=== PATIENT | female | born 1965 | race Caucasian/White ===

== ENCOUNTER 2018-04-09 18:09 | Emergency (ER) | payer BC ==
[~2018-04-09] VITALS: Ht 160 cm; Wt 72.0 kg
[~2018-04-09 18:09] MED LIST: COLC0.6T66 PO; IBUP-1051 PO; IND25C PO; TIZA4TAB11 PO
[2018-04-09 18:35] VITALS: BP 121/70
[2018-04-09] MEDS ORDERED: HYDROcodone/acetaminophen 10/325mg tab PO ONE (21:35)
[2018-04-09] MEDS ORDERED: HYDR-565 PO (21:46)
== END 2018-04-09 22:03 | disposition home or self-care (01) ==
LOC: ER 18:10
DX: S92.512A Displaced fracture of proximal phalanx of left lesser toe(s), initial encounter for closed fracture (principal); Z90.49 Acquired absence of other specified parts of digestive tract; Z88.0 Allergy status to penicillin; Z88.5 Allergy status to narcotic agent; Z79.899 Other long term (current) drug therapy; W22.03XA Walked into furniture, initial encounter; Y93.89 Activity, other specified; Y92.89 Other specified places as the place of occurrence of the external cause; Y99.8 Other external cause status
CPT/HCPCS: 73660; 99284

== ENCOUNTER 2018-07-21 17:30 | Emergency (ER) | payer BC, OTHER ==
[~2018-07-21] VITALS: Ht 160 cm; Wt 75.0 kg
[2018-07-21] MEDS ORDERED: fentaNYL/PF 50MCG/1 ML 2ML syringe IV ONE ×2 (18:00→20:30)
--- NOTE | 2018-07-21 18:13 | NUR ---
PT OFF TO XRAY AND CT
[2018-07-21 18:21] LABS: BASOPHILS % (AUTO) 0.6 % (0-1); EOSINOPHILS # (AUTO) 0.1 X10'3 (0-0.9); EOSINOPHILS % (AUTO) 1.5 % (0-6); HEMATOCRIT 42.6 % (35.0-45.0); LYMPHOCYTES # (AUTO) 2.5 X10'3 (1.1-4.8); LYMPHOCYTES % (AUTO) 36.3 % (21-51); MEAN CORPUSCULAR HEMOGLOBIN 29.9 PG (27.0-31.0); MEAN CORPUSCULAR HGB CONC 32.9 % (33.0-36.5); MEAN CORPUSCULAR VOLUME 90.8 FL (78-98); MONOCYTES # (AUTO) 0.5 X10'3 (0-0.9); MONOCYTES % (AUTO) 7.4 % (2-12); NEUTROPHILS # (AUTO) 3.7 X10'3 (1.8-7.7); NEUTROPHILS % (AUTO) 54.2 % (42-75); PLATELET COUNT 269 X10'3 (140-440); RED BLOOD COUNT 4.69 X10'6 (4.20-5.60); RED CELL DISTRIBUTION WIDTH 12.6 % (11.5-14.5); WHITE BLOOD COUNT 6.8 X10'3 (4.5-11.0)
[2018-07-21 18:38] LABS: ALANINE AMINOTRANSFERASE 29 U/L (12-78); ALBUMIN 3.8 G/DL (3.4-5.0); ALKALINE PHOSPHATASE 73 IU/L (46-116); ANION GAP 12 (8-16); ASPARTATE AMINO TRANSFERASE 24 U/L (10-37); BILIRUBIN,TOTAL 0.2 MG/DL (0.1-1.0); BLOOD UREA NITROGEN 16 MG/DL (7-18); BUN/CREATININE RATIO 19.8 (6.6-38.0); CALCIUM 8.6 MG/DL (8.5-10.1); CHLORIDE 99 MMOL/L (99-107); CREATININE 0.81 MG/DL (0.40-0.90); GLUCOSE 119 MG/DL (70-104); SODIUM 137 MMOL/L (135-145); TOTAL PROTEIN 7.6 G/DL (6.4-8.2); eGFR 75 ML/MIN
[2018-07-21 18:39] LABS: POTASSIUM 4.1 MMOL/L (3.5-5.1)
--- NOTE | 2018-07-21 19:23 | NUR ---
in visiting with the pt. He took the c collar off.
--- NOTE | 2018-07-21 19:26 | NUR ---
Pt does have a chin lac, MD asked for face to be cleansed and for facial dermabond, tech made aware.
[2018-07-21] MEDS ORDERED: LIDOcaine 1% 30ml preserv. free vial IJ ONE (20:15)
--- NOTE | 2018-07-21 20:26 | NUR ---
dr. cisneros at bedside numbing face lac. Pt's at bedside. pt with stable vs. reports 7out of 10 pain.
[2018-07-21] MEDS ORDERED: HYDR-3965 PO (20:59)
--- NOTE | 2018-07-21 21:11 | NUR ---
piv dcd catheter appears intact and site clear
[2018-07-21 21:15] VITALS: BP 127/83
== END 2018-07-21 21:25 | disposition home or self-care (01) ==
LOC: ER 17:30
DX: S02.2XXA Fracture of nasal bones, initial encounter for closed fracture (principal); H02.402 Unspecified ptosis of left eyelid; T14.8XXA Other injury of unspecified body region, initial encounter; Z90.49 Acquired absence of other specified parts of digestive tract; Z98.890 Other specified postprocedural states; Z88.0 Allergy status to penicillin; Z88.5 Allergy status to narcotic agent; Z79.899 Other long term (current) drug therapy; V03.99XA Pedestrian with other conveyance injured in collision with car, pick-up truck or van, unspecified whether traffic or nontraffic accident, initial encounter; Y93.01 Activity, walking, marching and hiking; Y92.89 Other specified places as the place of occurrence of the external cause; Y99.8 Other external cause status
CPT/HCPCS: 36415; 70450; 70486; 71250; 72125; 73502; 74176; 80053; 85025; 96374; 96376; 99284; J3010; J3490

== ENCOUNTER 2018-07-24 22:55 | Emergency (ER) | payer OTHER ==
[~2018-07-24] VITALS: Ht 160 cm; Wt 69.0 kg
[~2018-07-24 22:55] MED LIST changes: +HYDR-3965 PO
--- NOTE | 2018-07-24 23:13 | NUR ---
EKG 2308
[2018-07-24] MEDS ORDERED: ondansetron/PF 4mg/2ml inj IV ONE (23:30)
[2018-07-24] MEDS ORDERED: fentaNYL/PF 50MCG/1 ML 2ML syringe IV ONE (23:30)
[2018-07-24 23:37] LABS: BASOPHILS % (AUTO) 0.5 % (0-1); EOSINOPHILS # (AUTO) 0.2 X10'3 (0-0.9); EOSINOPHILS % (AUTO) 2.7 % (0-6); HEMATOCRIT 41.4 % (35.0-45.0); HEMOGLOBIN 13.7 g/dl (12.0-16.0); LYMPHOCYTES # (AUTO) 2.6 X10'3 (1.1-4.8); LYMPHOCYTES % (AUTO) 38.8 % (21-51); MEAN CORPUSCULAR HEMOGLOBIN 29.6 PG (27.0-31.0); MEAN CORPUSCULAR VOLUME 89.8 FL (78-98); MEAN PLATELET VOLUME 10.2 FL (7.4-10.4); MONOCYTES # (AUTO) 0.6 X10'3 (0-0.9); MONOCYTES % (AUTO) 9.5 % (2-12); NEUTROPHILS # (AUTO) 3.2 X10'3 (1.8-7.7); NEUTROPHILS % (AUTO) 48.5 % (42-75); PLATELET COUNT 273 X10'3 (140-440); RED BLOOD COUNT 4.61 X10'6 (4.20-5.60); RED CELL DISTRIBUTION WIDTH 12.9 % (11.5-14.5); WHITE BLOOD COUNT 6.6 X10'3 (4.5-11.0)
[2018-07-24 23:44] LABS: ALANINE AMINOTRANSFERASE 29 U/L (12-78); ALBUMIN 3.6 G/DL (3.4-5.0); ALBUMIN/GLOBULIN RATIO 0.9 (1.1-1.5); ALKALINE PHOSPHATASE 76 IU/L (46-116); ANION GAP 11 (8-16); ASPARTATE AMINO TRANSFERASE 20 U/L (10-37); BILIRUBIN,TOTAL 0.3 MG/DL (0.1-1.0); BLOOD UREA NITROGEN 22 MG/DL (7-18); BUN/CREATININE RATIO 28.2 (6.6-38.0); CHLORIDE 101 MMOL/L (99-107); CREATININE 0.78 MG/DL (0.40-0.90); GLUCOSE 105 MG/DL (70-104); LIPASE 132 U/L (73-393); SODIUM 140 MMOL/L (135-145); TOTAL CARBON DIOXIDE 27.7 MMOL/L (24-32); TOTAL PROTEIN 7.5 G/DL (6.4-8.2); eGFR 78 ML/MIN
[2018-07-24 23:45] LABS: PROTHROMBIN TIME 10.5 SECONDS (9.0-12.0)
[2018-07-25] MEDS ORDERED: iohexol 300mg/ml 100ml inj. ONE (00:20)
[2018-07-25] MEDS ORDERED: ketorolac trometh. 30mg/ml inj. IV ONE (02:30)
[2018-07-25 02:56] VITALS: BP 136/78
== END 2018-07-25 03:00 | disposition home or self-care (01) ==
LOC: ER 22:56
DX: S00.91XA Abrasion of unspecified part of head, initial encounter (principal); R10.12 Left upper quadrant pain; M54.2 Cervicalgia; R42 Dizziness and giddiness; Z90.49 Acquired absence of other specified parts of digestive tract; Z98.890 Other specified postprocedural states; Z88.0 Allergy status to penicillin; Z88.5 Allergy status to narcotic agent; Z79.899 Other long term (current) drug therapy; V03.99XA Pedestrian with other conveyance injured in collision with car, pick-up truck or van, unspecified whether traffic or nontraffic accident, initial encounter; Y93.89 Activity, other specified; Y92.488 Other paved roadways as the place of occurrence of the external cause; Y99.8 Other external cause status
CPT/HCPCS: 36415; 74177; 80053; 83690; 85025; 85610; 93005; 96374; 96375; 99284; J1885; J2405; J3010; Q9967